=== PATIENT | male | born 1970 | race Caucasian/White ===

== ENCOUNTER 2016-05-16 21:37 | Emergency (ER) | payer SELFPAY ==
[2016-05-17 00:49] LABS: ABSOLUTE NEUTROPHIL COUNT 4.5 K/mm3 (1.8-7.7); BASO # 0.1 K/mm3 (0.0-0.2); EOS # 0.1 (0.0-0.5); EOS % 1.3 % (0.9-2.9); HEMOGLOBIN 11.7 gm/l (14.0-18.0); IMM NEUT% 0.1 % (0-1); LYMPH # 2.6 (1.0-4.8); LYMPH % 32.3 % (15-45); MEAN CELL VOLUME 95.6 fl (80.0-94.0); MEAN CORPUSCULAR HEMOGLOBIN 30.2 pg (27.0-31.0); MEAN CORPUSCULAR HGB CONC 31.6 g/dl (33.0-37.0); MEAN PLATELET VOLUME 10.8 fl (7.4-10.4); MONO # 0.7 (0.0-0.8); MONO % 9.1 % (4-12); NEUT % 56.2 % (43-75); PLATELET COUNT 240 K/mm3 (130-400); RED CELL DISTRIBUTION WIDTH 14.3 % (11.5-14.5)
[2016-05-17] MEDS ORDERED: HYDROCODONE/ACETAMINOPHEN 5/325MG TABLET ONE (00:55)
[2016-05-17] MEDS ORDERED: CEFTRIAXONE 1 GRAM DUPLEX 50 ML IV ONE (00:55)
[2016-05-17 01:08] LABS: ALB/GLOB RATIO 0.6 (>1.0); ALBUMIN 2.7 gm/dL (3.5-5.7); CALCIUM 9.1 mg/dL (8.6-10.3)
[2016-05-17] MEDS ORDERED: DIPHENHYDRAMINE HCL 50 MG/1 ML VIAL ONE (01:36)
[2016-05-17] MEDS ORDERED: CLINDAMYCIN 900 MG PREMIX 50 ML IV ONE (01:36)
== END 2016-05-17 03:28 | disposition home or self-care (01) ==
LOC: ED 21:37
DX: L03.116 Cellulitis of left lower limb (principal); L03.115 Cellulitis of right lower limb; E11.9 Type 2 diabetes mellitus without complications
CPT/HCPCS: 85025; 80053; 96375; 99283 ×2; 96365; J1200; A9270; J0696